=== PATIENT | male | born 1985 | race Two or more races ===

== ENCOUNTER 2018-07-17 21:11 | Emergency (ER) | payer SELFPAY ==
--- NOTE | 2018-07-17 21:40 | ED PDOC ---
HPI: Psych/Substance Abuse Time Seen by Provider: 07/17/18 21:40 Chief Complaint (Nursing): Alcohol Ingestion Chief Complaint (Provider): alcohol ingestion History Per: Patient (33 y/o male admits etoh ingestion. Denies any falls/trauma. NO complaints.) Past Medical History Reviewed: Historical Data, Nursing Documentation, Vital Signs Vital Signs: Last Vital Signs Temp 97.7 F 07/17/18 21:16 Pulse 106 H 07/17/18 21:16 Resp 20 07/17/18 21:16 BP 125/90 07/17/18 21:16 Pulse Ox 97 07/17/18 21:16 - Family History Family History: States: No Known Family Hx - Allergies Allergies/Adverse Reactions: Allergies Allergy/AdvReac Type Severity Reaction Status Date / Time No Known Allergies Allergy Verified 07/17/18 21:16 Review of Systems ROS Statement: Except As Marked, All Systems Reviewed And Found Negative Physical Exam - Reviewed Nursing Documentation Reviewed: Yes Vital Signs Reviewed: Yes - Physical Exam Appears: Positive for: Well, Non-toxic, No Acute Distress Head Exam: Positive for: ATRAUMATIC, NORMAL INSPECTION, NORMOCEPHALIC Skin: Positive for: Normal Color, Warm, DRY Eye Exam: Positive for: EOMI, Normal appearance, PERRL ENT: Positive for: Normal ENT Inspection Neck: Positive for: Normal, Painless ROM Cardiovascular/Chest: Positive for: Regular Rate, Rhythm Respiratory: Positive for: CNT, Normal Breath Sounds Gastrointestinal/Abdominal: Positive for: Normal Exam, Soft Back: Positive for: Normal Inspection Extremity: Positive for: Normal ROM Neurologic/Psych: Positive for: Alert, Oriented - ECG O2 Sat by Pulse Oximetry: 97 - Progress ED Course And Treament: NOTED TO BE PROGRESSIVELY MORE ALERT AND CLINICALLY SOBER WITH STEADY GAIT. Disposition - Clinical Impression Clinical Impression: Alcohol ingestion - Patient ED Disposition Is Patient to be Admitted: No - Disposition Disposition: Routine/Home Disposition Time: 04:57 Condition: FAIR Instructions: Alcohol Poisoning (DC) Print Language: ICELANDIC
[2018-07-18 05:50] VITALS: BP 118/62; PULSE 66; RESP 17; TEMP 97.6; O2SAT 98
== END 2018-07-18 05:20 | disposition home or self-care (01) ==
LOC: H.ER 21:11 → EDBD 21:11 → H.ER 07-18 05:20
DX: F10.10 Alcohol abuse, uncomplicated (principal)